=== PATIENT | female | born 1980 | race Caucasian/White ===

== ENCOUNTER → 2016-12-09 | Outpatient (CLI) | payer OTHER | END | disposition home or self-care (01) | LOC: C.LAB 11:39 | DX: Z02.83 Encounter for blood-alcohol and blood-drug test (principal) ==

== ENCOUNTER 2017-10-22 05:18 | Emergency (ER) | payer OTHER ==
[2017-10-22] MEDS ORDERED: LORAZEPAM 2 MG/ML 1 ML VIAL ONE (05:26)
[2017-10-22] MEDS ORDERED: HALOPERIDOL LACTATE 5 MG/ML 1 ML VIAL ONE (05:26)
--- NOTE | 2017-10-22 05:48 | EMERGENCY ROOM VISIT NOTE ---
History Report prepared by Karina: Zac Ruiz Under the Supervision of: Dr. Marva Johnson D.O. First contact with patient: 05:25 Chief Complaint: MENTAL HEALTH EVALUATION Stated Complaint: MENTAL HEALTH EVALUATION History of Present Illness The patient is a 37 year old female who presents to the Emergency Room with complaints of an episode of suicidal ideations occurring today. The patient's sister states that the patient lives with her. She notes that the patient was admitted last week after she had a seizure. She reports that the patient then had another seizure three days ago because she took three of her gabapentin. She states that the patient did not have a previous history of seizures before last week. She notes that the patient last slept three days ago. She reports that the patient started having odd and erratic behavior today. She states that the patient was naked and screaming this morning. She notes that the patient broke a mirror and then threatened to kill herself and then kill her sister. She reports that the patient has been arrested fourteen times and has been in and out of shelter. She states that the patient has a history of substance abuse and is possibly abusing substances at this time but she notes that she is not sure. She reports that the patient does not have a previous attempt of suicide and homicide. She states that she is not sure if the patient has been admitted for psychiatric reasons in the past. She notes that the patient does not drink alcohol. She reports that the patient has a mother with schizophrenia and manic depression and she states that the patient is showing similar symptoms as her mother. She notes that she would like to petition for involuntary admission. When being restrained by security and state police, the patient stated to security that she is "going to destroy your house." She also told security "don' t touch me or it will be your deathbed, I promise." Source of History: patient, family (sister) Onset: today Position: head Quality: other (suicidal ideations) Timing: other (an episode) Note: Per sister, the patient threatened to kill her. Review of Systems See HPI for pertinent positives & negatives. A total of 10 systems reviewed and were otherwise negative. Past Medical & Surgical Medical Problems: (1) Seizure (2) Substance abuse (3) Toxic encephalopathy Family History FH: manic depression FH: schizophrenia Social History Smoking Status: Unknown if Ever Smoked Alcohol Use: none Drug Use: cocaine, other Marital Status: single Housing Status: lives with friends Occupation Status: unemployed Current/Historical Medications Unable to Obtain Active Prescriptions or Reported Meds Allergies Coded Allergies: No Known Allergies (Unverified , 10/07/07) Physical Exam Vital Signs Date Time Temp Pulse Resp B/P (MAP) Pulse Ox O2 Delivery O2 Flow Rate FiO2 10/22/17 07:30 77 11 116/75 97 Room Air 10/22/17 07:00 83 12 112/75 96 Room Air 10/22/17 06:08 93 10/22/17 05:39 108 20 141/84 98 Room Air Physical Exam General: Restrained by two state troopers and two security guards, screaming expletives, threatening to kill providers. HEENT: Head - normocephalic and atraumatic Pupils are 4mm and reactive to light. Extraocular eye muscles are intact, and sclera are anicteric. Nose - moist nasal mucosa without discharge. Mouth - moist buccal mucosa. Oropharynx is nonerythematous and there is no tonsillar exudate or edema noted. Neck: Supple; no JVD, nuchal rigidity, cervical lymphadenopathy. Heart: Regular rhythm and tachycardic. There is a normal S1 and S2 with no murmurs, clicks, or gallops appreciated. Lungs: Clear to auscultation bilaterally with no wheezes, rales, or rhonchi. Abdomen: Soft, completely nontender, nondistended, with good bowel sounds. There are no palpable pulsatile masses or hepatosplenomegaly. There is no guarding, rigidity, or rebound noted. Extremities: No evidence of cyanosis, clubbing, or edema. There are easily palpable peripheral pulses. Multiple bruises at different stages of healing on legs. Superficial lacerations to the right wrist Skin: warm and dry with good turgor and no rashes. Medical Decision & Procedures Laboratory Results 10/22/17 05:57 Red Blood Count 3.87, Mean Corpuscular Volume 92.0, Mean Corpuscular Hemoglobin 30.2, Mean Corpuscular Hemoglobin Concent 32.9, Mean Platelet Volume , Neutrophils (%) (Auto) 67.2, Lymphocytes (%) (Auto) 21.0, Monocytes (%) (Auto) 8.6, Eosinophils (%) (Auto) 2.0, Basophils (%) (Auto) 0.4, Neutrophils # (Auto) 5.07, Lymphocytes # (Auto) 1.58, Monocytes # (Auto) 0.65, Eosinophils # (Auto) 0.15, Basophils # (Auto) 0.03 10/22/17 05:57 Test 10/22/17 05:46 10/22/17 05:57 White Blood Count 7.54 K/uL (4.8-10.8) Red Blood Count 3.87 M/uL (4.2-5.4) Hemoglobin 11.7 g/dL (12.0-16.0) Hematocrit 35.6 % (37-47) Mean Corpuscular Volume 92.0 fL (80-100) Mean Corpuscular Hemoglobin 30.2 pg (25-34) Mean Corpuscular Hemoglobin Concent 32.9 g/dl (32-36) Platelet Count K/uL (130-400) Mean Platelet Volume fL (7.4-10.4) Neutrophils (%) (Auto) 67.2 % Lymphocytes (%) (Auto) 21.0 % Monocytes (%) (Auto) 8.6 % Eosinophils (%) (Auto) 2.0 % Basophils (%) (Auto) 0.4 % Neutrophils # (Auto) 5.07 K/uL (1.4-6.5) Lymphocytes # (Auto) 1.58 K/uL (1.2-3.4) Monocytes # (Auto) 0.65 K/uL (0.11-0.59) Eosinophils # (Auto) 0.15 K/uL (0-0.5) Basophils # (Auto) 0.03 K/uL (0-0.2) RDW Standard Deviation 44.6 fL (36.4-46.3) RDW Coefficient of Variation 13.3 % (11.5-14.5) Immature Granulocyte % (Auto) 0.8 % Immature Granulocyte # (Auto) 0.06 K/uL (0.00-0.02) Anion Gap 8.0 mmol/L (3-11) Estimated GFR () 118.0 Estimated GFR (Non- 101.8 BUN/Creatinine Ratio 10.6 (10-20) Calcium Level 9.0 mg/dl (8.5-10.1) Total Bilirubin 0.2 mg/dl (0.2-1) Direct Bilirubin < 0.1 mg/dl (0-0.2) Aspartate Amino Transf (AST/SGOT) 27 U/L (15-37) Alanine Aminotransferase (ALT/SGPT) 20 U/L (12-78) Alkaline Phosphatase 64 U/L (45-117) Total Protein 7.3 gm/dl (6.4-8.2) Albumin 3.9 gm/dl (3.4-5.0) Thyroid Stimulating Hormone (TSH) 1.470 uIu/ml (0.300-4.500) Salicylates Level 2.1 mg/dl (2.8-20) Acetaminophen Level < 2 ug/ml (10-30) Ethyl Alcohol mg/dL < 3.0 mg/dl (0-3) Laboratory results per my review. Medications Administered Medications (Trade) Dose Ordered Sig/Aparna Route Start Time Stop Time Status Last Admin Dose Admin Lorazepam (Ativan Inj) 2 mg STK-MED ONCE .ROUTE 10/22/17 05:26 10/22/17 05:27 DC 10/22/17 05:30 2 MG Haloperidol Lactate (Haldol Inj) 5 mg STK-MED ONCE .ROUTE 10/22/17 05:26 10/22/17 05:27 DC 10/22/17 05:30 5 MG Procedure Haldol Inj 5mg IM, Ativan Inj 2mg IM ED Course 0529: Past medical records reviewed. The patient was evaluated in room A8. A complete history and physical exam was performed. The patient was threatening security, state police, and staff. 0525: The patient went into chemical and four point leather restraints. 0526: Haldol Inj 5mg IV, Ativan Inj 2mg IV. I had a lengthy conversation with the patient's sister as described above. 0558: I reevaluated the patient. She is sleeping. Staff from [facility] are currently talking to the patient's sister. 0647: I reviewed the petitioning statement that the patient's sister wrote. 0700: The patient was taken out of her leather restraints. She is still sleeping and remains hemodynamically stable. 0730: The patient was signed out to Dr. Bruce at the change of shift. Once the patient is awake, they will collect a urine. Medical Decision The patient is a 37 year old female who presents to the Emergency Room with complaints of an episode of suicidal ideations occurring today. Differential diagnoses include: substance abuse, acute psychosis, mood disorder, thought disorder, suicidal threats, and homicidal threats. Lab Results Show: Salicylates 2.1. Acetaminophen < 2. Normal TSH and LFTs. Glucose 100. Normal renal function. WBC normal. Hemoglobin 11.7. This is a 37-year-old female patient presents to the emergency department after making suicidal statements and cutting her wrist with a piece of broken mirror. The patient also threatened to kill her sister. She was brought to the emergency department by state police. She required physical restraint by police and security once here in the emergency department. She continued to scream expletives and threaten staff. She was sedated with Haldol and Ativan and placed in four-point leather restraints. The patient's sister petitioned a 302. According to the sister, the patient threatened to kill the sister and herself. She describes an extensive mental health history in their mother and is concerned for this patient. The patient remains asleep at this time. Once she is medically cleared, she will be evaluated by can help. Medication Reconcilliation Current Medication List: was personally reviewed by me Blood Pressure Screening Patient's blood pressure: Elevated blood pressure Blood pressure disposition: Elevated BP felt to be situational Impression Primary Impression: Suicidal ideation Additional Impression: Homicidal ideations Critical Care I have personally spent greater than 30 minutes of critical care time in the direct management of this patient. This includes bedside care, interpretation of diagnostic studies, and testing, discussion with consultants, patient, and family members, and other required patient management activities. This 30 minutes is in excess of all separately billable procedures. Scribe Attestation The scribe's documentation has been prepared under my direction and personally reviewed by me in its entirety. I confirm that the note above accurately reflects all work, treatment, procedures, and medical decision making performed by me. Departure Information Dispostion Still a Patient Prescriptions Unable to Obtain Active Prescriptions or Reported Meds Referrals No Doctor, Assigned (PCP) Patient Instructions My [facility] Problem Qualifiers
[2017-10-22 06:30] LABS: ALBUMIN 3.9 gm/dl (3.4-5.0); BLOOD UREA NITROGEN 8 mg/dl (7-18); CARBON DIOXIDE 26 mmol/L (21-32); CREATININE 0.75 mg/dl (0.60-1.20); GLUCOSE 100 mg/dl (70-99)
[2017-10-22 06:38] LABS: ALKALINE PHOSPHATASE 64 U/L (45-117); ALT/SGPT 20 U/L (12-78); AST/SGOT 27 U/L (15-37); POTASSIUM 4.2 mmol/L (3.5-5.1); SODIUM 142 mmol/L (136-145); TOTAL PROTEIN 7.3 gm/dl (6.4-8.2)
--- NOTE | 2017-10-22 06:46 | EMERGENCY ROOM VISIT NOTE ---
ED Visit Note First contact with patient: 06:46 I assumed care of the patient at change of shift from Dr. Johnson. Patient was very difficult to arouse during shift and was not able to be evaluated by the psych manager of case. I did review the blood work and there was no overt concerns at this time. Patient was pending a urinalysis. Patient was signed out to the afternoon physician Dr. Whalen.
[2017-10-22 07:07] LABS: HEMATOCRIT 35.6 % (37-47); HEMOGLOBIN 11.7 g/dL (12.0-16.0); MEAN CORPUSCULAR HEMOGLOBIN 30.2 pg (25-34); MEAN CORPUSCULAR HGB CONC 32.9 g/dl (32-36); RED CELL DISTRIBUTION WIDTH CV 13.3 % (11.5-14.5); RED CELL DISTRIBUTION WIDTH SD 44.6 fL (36.4-46.3); WHITE BLOOD COUNT 7.54 K/uL (4.8-10.8)
[2017-10-22 07:14] LABS: BASO % 0.4 %; BASO ABS # 0.03 K/uL (0-0.2); EOS ABS # 0.15 K/uL (0-0.5); IG# 0.06 K/uL (0.00-0.02); LYMPH ABS # 1.58 K/uL (1.2-3.4); MONO % 8.6 %; MONO ABS # 0.65 K/uL (0.11-0.59); NEUT % 67.2 %; NEUT ABS # 5.07 K/uL (1.4-6.5)
--- NOTE | 2017-10-22 15:40 | EMERGENCY ROOM VISIT NOTE ---
ED Visit Note First contact with patient: 15:[address] drew flynn of schizophrenia, awaiting ua and psych eval
[2017-10-22] MEDS ORDERED: NICOTINE 14 MG/24 HR TDSY TD ONE (17:45)
[2017-10-22] MEDS ORDERED: NURSING VERBAL MED ORDER ONE (17:45)
[2017-10-23 01:36] VITALS: BP 136/83
--- NOTE | 2017-10-23 04:54 | EMERGENCY ROOM VISIT NOTE ---
ED Visit Note First contact with patient: 05:25 This case was signed out to me at change of shift awaiting bed placement. The 302 had been signed. The patient has been accepted at the [facility] near [place]. She will be transferred there by ashu at 5:30 this morning.
[2017-10-23 06:07] VITALS: PULSE 68; O2SAT 97
== END 2017-10-23 06:08 ==
LOC: C.EDB 05:19 → C.EDA 10-23 06:08
DX: R45.851 Suicidal ideations (principal); R45.850 Homicidal ideations; S61.511A Laceration without foreign body of right wrist, initial encounter; X78.0XXA Intentional self-harm by sharp glass, initial encounter; R03.0 Elevated blood-pressure reading, without diagnosis of hypertension; Z81.8 Family history of other mental and behavioral disorders

== ENCOUNTER 2020-01-03 06:31 | Inpatient (IN) ==
--- NOTE | 2020-01-03 07:32 | Emergency Department Note ---
Impression & Plan Heroin overdose, Hypercarbia, Polysubstance abuse ED Provider Note NAME: MARK GAO AGE: 39 SEX: F ARRIVES VIA: Ambulance INFORMANT: Patient, ED PROVIDER(S): Ba Granados MD CHIEF COMPLAINT: Heroine overdose. PLAN: Disposition: Home MEDICAL DECISION MAKING: The patient is a 39-year-old woman with a past medical history of polysubstance abuse who presents emergency department via EMS after receiving Narcan after they were called to the scene for friends concerned that the patient had stopped breathing and gave CPR though upon EMS arrival the patient was breathing and did have a pulse and was given Narcan with improvement in her mental status. The patient reports taking his using a sprinkle of heroin but had 5 empty bags on her person. She reports it is possible that her heroin was laced with other substances but does not know for sure. She denies knowingly using any other substances such as methadone or benzodiazepines. On arrival the patient is drowsy appearing but no acute distress, afebrile with stable vital signs with normal respiratory effort and rate and oxygenation. She does have pinpoint pupils. Reflexes within normal limits. There is no clonus. She does have scattered excoriations and contusions of her skin with no overt abscess identified. There is no chest wall tenderness or skin changes to suggest any true/effective CPR effort prior to EMS arrival. Given the patient had unremarkable vital signs she was initially observed with minimal additional testing however over the course of her observation it was noted that she remained drowsy and as she would fall asleep she would become bradypneic with respiratory rate 6-8 and would become hypoxic to the upper 80s. She was placed on nasal cannula and given 0.4 mg of Narcan which did briefly improve her respiratory rate but then would again become bradypneic when falling asleep. Of note during her observation she always would easily awaken to voice however her respiratory rate was of concern. She was given 2 mg of IV Narcan with improvement in her respiratory rate even when sleeping however given her persistent drowsiness with continued pinpoint pupils unclear of whether there was an alteration in the patient's heroin or there is additional substance contributing to patient's symptoms that she has not disclosed. For, reasonable to meet the patient for further management. I did review the case with the [facility]. They agree with plan thus far however given the possibility of the patient is a chronic heroin user caution was given for starting Narcan drip for risk of severe withdrawal and so it was explained that some deputy administrator will recommend prophylactic intubation if Narcan drip is started. Given she is easily arousable to voice and is protecting her airway otherwise will defer Narcan drip at this time but monitor closely with capnography. Otherwise, the patient's EKG was unremarkable without acute ischemia and normal intervals. WBC, H/H and platelets within normal limits. Chemistry without metabolic acidosis. AST marginally elevated at 79, nonspecific. Otherwise electrolytes and LFTs unremarkable. Urine analysis and urine drug screen ordered and pending. Patient's VBG did demonstrate a degree of hypercapnia with PCO2 of 61 and pH of 7.29 is consistent with the patient's bradypneic episodes. CT head negative for acute process. Dysconjugate gaze of unclear significance at this time. Suspect related to polysubstance ovderdose. Case was [facility] who will evaluate the patient for admission. Triage Nursing notes reviewed and agree them. Additional history obtained from EMS Prior medical records reviewed Vital Signs: reviewed and remarkable for no significant abnormalities Differential diagnosis: Overdose, toxicologic, infection, hypoglycemia, electrolyte abnormalities, cardiac sources, intracerebral event, neurologic, trauma, as well as other pathologies. ER treatment provided: See below. Diagnostics interpreted by me: ECG: Normal sinus rhythm, 60 bpm, no ectopy, normal axis, no overt ST elevation or depression, QTC 428, QRS 82. Cardiac Monitoring: An order for continuous cardiac monitoring was placed and demonstrated normal sinus rhythm, 60 bpm, no ectopy. Laboratory studies: See below Imaging studies: CT head/brain wo con CLINICAL HISTORY: Acute change in mental status COMPARISON STUDY: 10/14/2017 TECHNIQUE: Axial CT of the brain is performed from the vertex to the skull base. IV contrast was not administered for this examination. A dose lowering t echnique was utilized adhering to the principles of ALARA. CT DOSE: 537.48 mGy.cm FINDINGS: No intra or extra-axial mass lesions are visualized. There is no CT evidence of acute cortical infarction. There is no evidence of midline shift. There is no acute hemorrhage. No calvarial fractures are visualized. There is disconjugate ocular gaze There is no evidence of pathologic ventricular dilatation. There is no evidence of acute sinusitis IMPRESSION: 1. Disconjugate ocular gaze. Otherwise unremarkable noncontrast head CT. Consultation(s): [facility] Suzette Boyce with [facility] hospitalist who will evaluate the patient for admission. HPI: The patient is a 39-year-old woman with a past medical history of polysubstance abuse who presents emergency department via EMS after receiving Narcan after they were called to the scene for friends concerned that the patient had stopped breathing and gave CPR though upon EMS arrival the patient was breathing and did have a pulse and was given Narcan with improvement in her mental status. The patient reports taking his using a sprinkle of heroin but had 5 empty bags on her person. On arrival the patient is drowsy appearing but no acute distress, afebrile with stable vital signs with normal respiratory effort and rate and oxygenation. She does have scattered excoriations and contusions of her skin with no overt abscess identified. There is no chest wall tenderness or skin changes to suggest any true/effective CPR effort prior to EMS arrival. ROS: See above HPI for pertinent positives & negatives. A total of 10 systems reviewed and were otherwise negative. PAST MEDICAL HISTORY:See Below PAST SURGICAL HISTORY:See Below FAMILY HISTORY:See Below SOCIAL HISTORY:See Below HOME MEDICATIONS:See Below ALLERGIES:See Below VITALS:See Below PHYSICAL EXAMINATION: GENERAL: Awake, alert, fatigue-appearing, in no distress HENT: Normocephalic, atraumatic. Oropharynx with dry mucous membranes and otherwise unremarkable. EYES: Normal conjunctiva. Sclera non-icteric. Pinpoint pupils. No nystagmus or dysconjugate gaze. NECK: Supple. No nuchal rigidity. FROM. No JVD. RESPIRATORY: Clear to auscultation. CARDIAC: Regular rate, normal rhythm. Extremities warm and well perfused. Pulses equal. ABDOMEN: Soft, non-distended. No tenderness to palpation. No rebound or guarding. No masses. RECTAL: Deferred. MUSCULOSKELETAL: Chest examination reveals no tenderness. The back is symmetrical on inspection without obvious abnormality. There is no CVA tenderness to palpation. No joint edema. LOWER EXTREMITIES: Calves are equal size bilaterally and non-tender. No edema. No discoloration. NEURO: Normal sensorium. No sensory or motor deficits noted. 5/5 strength and SILT x 4 extremities. Intact finger to nose. DTRs wnl. No clonus. SKIN: Warm and dry. No jaundice noted. Scattered superficial excoriations and contusions throughout extremities face, chest and abdomen without areas of induration or fluctuance. ED COURSE: Critical Care: I have personally spent greater than 125 minutes of critical care time in the direct management of this patient. This includes bedside care, interpretation of diagnostic studies, and testing, discussion with consultants, patient, and family members, and other required patient management activities. This 125 minutes is in excess of all separately billable procedures. Ba Granados MD Past Med/Surg History Medical History Anxiety Genital warts Polysubstance abuse Suicidal ideation Family History Mother Kidney disease Social History Smoking Status: Current every day smoker Cigarettes Per Day: 20; Tobacco Cessation Education Requested by Patient: No Hx Alcohol Use: No Hx Substance Use: Yes Last Used Substance: Hours (ago) Substance Use Type Other:: Here with heroin/meth overdose Preferred Language: [place] Communication Ability: Effective [employer] Professional Required: No Beliefs That Will Affect Care: None Current Living Situation: Other Current Living Situation Comment: Living with friends Other Information That Helps Us Care for You: No Feels Safe at Home: Yes Safety Concerns: Feels Safe At This Time Assistive Devices: None Allergies Allergies Allergy/AdvReac Type Severity Reaction Status Date / Time No Known Allergies Allergy Mild Unverified 01/03/20 16:16 Home Meds Home Medications Medication Instructions Recorded Confirmed gabapentin 800 mg PO TID 01/03/20 01/03/20 Results & Data (ED) Vital Signs Vital Signs - 24 hr 01/03/20 06:40 01/03/20 06:42 01/03/20 07:00 Temperature 36.4 C L Temperature Source Oral Pulse Rate 61 60 72 Pulse Rate from SpO2 Sensor 60 78 Respiratory Rate 18 20 19 Respiratory Effort / Characteristics Non-Labored Spontaneous Respiratory Depth Normal Respiratory Pattern Regular Blood Pressure 128/79 128/79 87/54 L Blood Pressure Mean 85 95 59 Blood Pressure Position Lying Pulse Oximetry 100 100 96 Oxygen Delivery Method Room Air Oxygen Flow Rate Sepsis Recent Fever Within 48 Hours No Sepsis New/Unexplained Change in Mental Status No Sepsis Action Taken by Nursing No Action Required End-Tidal CO2 01/03/20 07:04 01/03/20 07:30 01/03/20 08:00 Temperature Temperature Source Pulse Rate 69 72 Pulse Rate from SpO2 Sensor 70 75 Respiratory Rate Respiratory Effort / Characteristics Respiratory Depth Respiratory Pattern Blood Pressure 113/67 Blood Pressure Mean 80 Blood Pressure Position Pulse Oximetry 100 90 Oxygen Delivery Method Room Air Oxygen Flow Rate Sepsis Recent Fever Within 48 Hours Sepsis New/Unexplained Change in Mental Status Sepsis Action Taken by Nursing End-Tidal CO2 01/03/20 08:30 01/03/20 09:00 01/03/20 09:30 Temperature Temperature Source Pulse Rate 78 78 81 Pulse Rate from SpO2 Sensor 79 82 78 Respiratory Rate 10 L 11 L Respiratory Effort / Characteristics Respiratory Depth Respiratory Pattern Blood Pressure 111/66 Blood Pressure Mean 89 Blood Pressure Position Pulse Oximetry 90 92 Oxygen Delivery Method Oxygen Flow Rate Sepsis Recent Fever Within 48 Hours Sepsis New/Unexplained Change in Mental Status Sepsis Action Taken by Nursing End-Tidal CO2 01/03/20 11:00 01/03/20 12:01 01/03/20 13:01 Temperature Temperature Source Pulse Rate 66 79 72 Pulse Rate from SpO2 Sensor 71 66 Respiratory Rate 12 12 11 L Respiratory Effort / Characteristics Respiratory Depth Respiratory Pattern Blood Pressure 113/75 122/82 137/71 Blood Pressure Mean 81 98 85 Blood Pressure Position Pulse Oximetry 97 99 98 Oxygen Delivery Method Oxygen Flow Rate 2 2 2 Sepsis Recent Fever Within 48 Hours Sepsis New/Unexplained Change in Mental Status Sepsis Action Taken by Nursing End-Tidal CO2 01/03/20 14:04 01/03/20 14:08 01/03/20 14:30 Temperature Temperature Source Pulse Rate 63 55 L 60 Pulse Rate from SpO2 Sensor 62 55 L 63 Respiratory Rate Respiratory Effort / Characteristics Respiratory Depth Respiratory Pattern Blood Pressure 121/87 122/85 Blood Pressure Mean 112 97 92 Blood Pressure Position Pulse Oximetry 100 100 100 Oxygen Delivery Method Oxygen Flow Rate Sepsis Recent Fever Within 48 Hours Sepsis New/Unexplained Change in Mental Status Sepsis Action Taken by Nursing End-Tidal CO2 40 39 42 01/03/20 15:00 01/03/20 15:30 Temperature Temperature Source Pulse Rate 58 L 48 L Pulse Rate from SpO2 Sensor 60 57 L Respiratory Rate Respiratory Effort / Characteristics Respiratory Depth Respiratory Pattern Blood Pressure 118/79 114/73 Blood Pressure Mean 84 84 Blood Pressure Position Pulse Oximetry 100 100 Oxygen Delivery Method Oxygen Flow Rate Sepsis Recent Fever Within 48 Hours Sepsis New/Unexplained Change in Mental Status Sepsis Action Taken by Nursing End-Tidal CO2 Laboratory Data Attestation: I reviewed the patient's lab results. Result diagrams: 01/03/20 11:49 01/03/20 11:49 Lab Results 01/03/20 01/03/20 01/03/20 Range/Units 07:07 11:49 11:49 WBC (4.8-10.8) K/uL RBC (4.2-5.4) M/uL Hgb (12.0-16.0) g/dL Hct (37-47) % MCV (80-100) fL MCH (25-34) pg MCHC (32-36) g/dL RDW Std Deviation (36.4-46.3) fL RDW Coeff of Yinka (11.5-14.5) % Plt Count (130-400) K/uL MPV (7.4-10.4) fL Immature Gran % (Auto) % Neut % (Auto) % Lymph % (Auto) % [place] % (Auto) % Eos % (Auto) % Baso % (Auto) % Neut # (Auto) (1.4-6.5) K/uL Lymph # (Auto) (1.2-3.4) K/uL [place] # (Auto) (0.11-0.59) K/uL Eos # (Auto) (0-0.5) K/uL Baso # (Auto) (0-0.2) K/uL Immature Gran # (Auto) (0.00-0.02) K/uL PT (9.0-12.0) Seconds INR (0.9-1.1) ABG pH (7.35-7.45) ABG pCO2 (35-46) mmHg ABG pO2 (80-95) mmHg ABG HCO3 (19-24) mmol/L ABG O2 Saturation (90-95) % ABG Base Excess (-9-1.8) mEq/L Mina Test (Pos) VBG pH (7.36-7.41) VBG pCO2 (38-50) mmHg VBG pO2 mmHg VBG HCO3 mmol/L VBG O2 Saturation % VBG Base Excess mEq/L Barometric Pressure mm/Hg Oxygen Given Sodium 141 (136-145) mmol/L Potassium 3.8 (3.5-5.1) mmol/L Chloride 110 H (98-107) mmol/L Carbon Dioxide 28 (21-32) mmol/L Anion Gap 3.0 (3-11) BUN 16 (7-18) mg/dl Creatinine 0.79 (0.6-1.2) mg/dl Est Cr Clr Drug Dosing Not Reportable Est GFR ( Amer) 109.3 Est GFR (Non-Af Amer) 94.3 BUN/Creatinine Ratio 20.5 H (10-20) Glucose 77 (70-99) mg/dl POC Glucose 117 H (70-99) mg/dl Calcium 9.0 (8.5-10.1) mg/dl Phosphorus 3.8 (2.5-4.9) mg/dl Magnesium 2.3 (1.8-2.4) mg/dl Total Bilirubin 0.3 (0.2-1) mg/dl AST 79 H (15-37) U/L ALT 72 (12-78) U/L Alkaline Phosphatase 99 (45-117) U/L Total Protein 7.4 (6.4-8.2) gm/dl Albumin 3.7 (3.4-5.0) gm/dl Globulin 3.7 (2.5-4.0) gm/dl Albumin/Globulin Ratio 1.0 (0.9-2) HCG, Qual Negative (Negative) Salicylates (2.8-20) mg/dl Acetaminophen (10-30) ug/ml 01/03/20 01/03/20 01/03/20 Range/Units 11:49 11:49 15:03 WBC 9.76 (4.8-10.8) K/uL RBC 4.14 L (4.2-5.4) M/uL Hgb 12.8 (12.0-16.0) g/dL Hct 39.4 (37-47) % MCV 95.2 (80-100) fL MCH 30.9 (25-34) pg MCHC 32.5 (32-36) g/dL RDW Std Deviation 45.2 (36.4-46.3) fL RDW Coeff of Yinka 13.0 (11.5-14.5) % Plt Count 350 (130-400) K/uL MPV 9.0 (7.4-10.4) fL Immature Gran % (Auto) 0.1 % Neut % (Auto) 78.1 % Lymph % (Auto) 13.1 % [place] % (Auto) 8.1 % Eos % (Auto) 0.4 % Baso % (Auto) 0.2 % Neut # (Auto) 7.62 H (1.4-6.5) K/uL Lymph # (Auto) 1.28 (1.2-3.4) K/uL [place] # (Auto) 0.79 H (0.11-0.59) K/uL Eos # (Auto) 0.04 (0-0.5) K/uL Baso # (Auto) 0.02 (0-0.2) K/uL Immature Gran # (Auto) 0.01 (0.00-0.02) K/uL PT 11.8 (9.0-12.0) Seconds INR 1.1 (0.9-1.1) ABG pH (7.35-7.45) ABG pCO2 (35-46) mmHg ABG pO2 (80-95) mmHg ABG HCO3 (19-24) mmol/L ABG O2 Saturation (90-95) % ABG Base Excess (-9-1.8) mEq/L Mina Test (Pos) VBG pH 7.29 L (7.36-7.41) VBG pCO2 61 H (38-50) mmHg VBG pO2 43 mmHg VBG HCO3 29 mmol/L VBG O2 Saturation 69.8 % VBG Base Excess 0.6 mEq/L Barometric Pressure 725.1 mm/Hg Oxygen Given Sodium (136-145) mmol/L Potassium (3.5-5.1) mmol/L Chloride (98-107) mmol/L Carbon Dioxide (21-32) mmol/L Anion Gap (3-11) BUN (7-18) mg/dl Creatinine (0.6-1.2) mg/dl Est Cr Clr Drug Dosing Est GFR ( Amer) Est GFR (Non-Af Amer) BUN/Creatinine Ratio (10-20) Glucose (70-99) mg/dl POC Glucose (70-99) mg/dl Calcium (8.5-10.1) mg/dl Phosphorus (2.5-4.9) mg/dl Magnesium (1.8-2.4) mg/dl Total Bilirubin (0.2-1) mg/dl AST (15-37) U/L ALT (12-78) U/L Alkaline Phosphatase (45-117) U/L Total Protein (6.4-8.2) gm/dl Albumin (3.4-5.0) gm/dl Globulin (2.5-4.0) gm/dl Albumin/Globulin Ratio (0.9-2) HCG, Qual (Negative) Salicylates (2.8-20) mg/dl Acetaminophen (10-30) ug/ml 01/03/20 01/03/20 Range/Units 15:03 15:03 WBC (4.8-10.8) K/uL RBC (4.2-5.4) M/uL Hgb (12.0-16.0) g/dL Hct (37-47) % MCV (80-100) fL MCH (25-34) pg MCHC (32-36) g/dL RDW Std Deviation (36.4-46.3) fL RDW Coeff of Yinka (11.5-14.5) % Plt Count (130-400) K/uL MPV (7.4-10.4) fL Immature Gran % (Auto) % Neut % (Auto) % Lymph % (Auto) % [place] % (Auto) % Eos % (Auto) % Baso % (Auto) % Neut # (Auto) (1.4-6.5) K/uL Lymph # (Auto) (1.2-3.4) K/uL [place] # (Auto) (0.11-0.59) K/uL Eos # (Auto) (0-0.5) K/uL Baso # (Auto) (0-0.2) K/uL Immature Gran # (Auto) (0.00-0.02) K/uL PT (9.0-12.0) Seconds INR (0.9-1.1) ABG pH 7.34 L (7.35-7.45) ABG pCO2 50 H (35-46) mmHg ABG pO2 122 H (80-95) mmHg ABG HCO3 26 H (19-24) mmol/L ABG O2 Saturation 98.4 H (90-95) % ABG Base Excess 0.0 (-9-1.8) mEq/L Mina Test POS (Pos) VBG pH (7.36-7.41) VBG pCO2 (38-50) mmHg VBG pO2 mmHg VBG HCO3 mmol/L VBG O2 Saturation % VBG Base Excess mEq/L Barometric Pressure 724.2 mm/Hg Oxygen Given Oxygen Flow Rate 2 Sodium (136-145) mmol/L Potassium (3.5-5.1) mmol/L Chloride (98-107) mmol/L Carbon Dioxide (21-32) mmol/L Anion Gap (3-11) BUN (7-18) mg/dl Creatinine (0.6-1.2) mg/dl Est Cr Clr Drug Dosing Est GFR ( Amer) Est GFR (Non-Af Amer) BUN/Creatinine Ratio (10-20) Glucose (70-99) mg/dl POC Glucose (70-99) mg/dl Calcium (8.5-10.1) mg/dl Phosphorus (2.5-4.9) mg/dl Magnesium (1.8-2.4) mg/dl Total Bilirubin (0.2-1) mg/dl AST (15-37) U/L ALT (12-78) U/L Alkaline Phosphatase (45-117) U/L Total Protein (6.4-8.2) gm/dl Albumin (3.4-5.0) gm/dl Globulin (2.5-4.0) gm/dl Albumin/Globulin Ratio (0.9-2) HCG, Qual (Negative) Salicylates 2.6 L (2.8-20) mg/dl Acetaminophen 2 L (10-30) ug/ml Administered Medications Sodium Chloride (Nss 1000ml) 1,000 mls @ 100 mls/hr IV .Q10H ISHAN Stop: 02/02/20 17:04 Last Admin: 01/03/20 17:20 Dose: 100 mls/hr Documented by: [id number] Discontinued Medications Sodium Chloride (Nss 1000ml) 1,000 mls @ 999 mls/hr IV .Q1H1M ONE Stop: 01/03/20 12:27 Last Infusion: 01/03/20 12:58 Dose: 0 mls/hr Documented by: [id number] Admin: 01/03/20 11:55 Dose: 999 mls/hr Documented by: [id number] Prochlorperazine (Compazine) 1 mls @ 1 mls/min IV ONE ONE Stop: 01/03/20 13:51 Last Admin: 01/03/20 13:59 Dose: 1 mls/min Documented by: [id number] Naloxone HCl (Naloxone Hcl 0.4 Mg/1 Ml Vial/Carp) 0.4 mg IV NOW STA Stop: 01/03/20 11:25 Last Admin: 01/03/20 11:55 Dose: 0.4 mg Documented by: [id number] Naloxone HCl (Naloxone Hcl 0.4 Mg/1 Ml Vial/Carp) 2 mg IV NOW STA Stop: 01/03/20 12:30 Last Admin: 01/03/20 12:44 Dose: 2 mg Documented by: [id number] Discharge Plan Visit Data Chief Complaint: Overdose (Intentional) Stated Complaint: OVERDOSE ED Provider: aB Granados Discharge Problem: Heroin overdose, Hypercarbia, Polysubstance abuse Patient Disposition: Admitted As Inpatient Discharge Instructions Interventions: ED Discharge Assessment Last Done: 01/03/20 15:58 Discharge Problem: Heroin overdose Qualifiers: Encounter type: initial encounter Injury intent: accidental or unintentional Qualified Code(s): T40.1X1A - Poisoning by heroin, accidental (unintentional), initial encounter
[2020-01-03] MEDS ORDERED: NALOXONE HCL 0.4 MG/1 ML VIAL/CARP IV STA ×2 (11:24→12:29)
[2020-01-03] MEDS ORDERED: SODIUM CHLORIDE 0.9% 1000ML 1,000 ML IV ONE (11:27)
[2020-01-03 11:57] LABS: Basophils # (auto) 0.02 K/uL (0-0.2); Basophils % (auto) 0.2 %; Eosinophils # (auto) 0.04 K/uL (0-0.5); Eosinophils % (auto) 0.4 %; Hematocrit (blood only) 39.4 % (37-47); Hemoglobin 12.8 g/dL (12.0-16.0); Immature Granulocytes # (auto) 0.01 K/uL (0.00-0.02); Immature Granulocytes % (auto) 0.1 %; Lymphocytes # (auto) 1.28 K/uL (1.2-3.4); Lymphocytes % (auto) 13.1 %; Mean Corpuscular Hemoglobin 30.9 pg (25-34); Mean Corpuscular Hgb Conc 32.5 g/dL (32-36); Mean Corpuscular Volume 95.2 fL (80-100); Monocytes # (auto) 0.79 K/uL (0.11-0.59); Monocytes % (auto) 8.1 %; Neutrophils # (auto) 7.62 K/uL (1.4-6.5); Neutrophils % (auto) 78.1 %; Platelet Count 350 K/uL (130-400); RDW Standard Deviation 45.2 fL (36.4-46.3); Red Blood Count 4.14 M/uL (4.2-5.4); White Blood Count 9.76 K/uL (4.8-10.8)
--- NOTE | 2020-01-03 11:57 | Electrocardiogram Report ---
Test Reason : Blood Pressure : / mmHG Vent. Rate : 060 BPM Atrial Rate : 060 BPM P-R Int : 150 ms QRS Dur : 082 ms QT Int : 428 ms P-R-T Axes : 070 073 069 degrees QTc Int : 428 ms Normal sinus rhythm Normal ECG When compared with ECG of 16-OCT-2017 08:17, No significant change was found Confirmed by Rocky Liriano ([id number]) on 01/03/2020 11:57:13 AM Referred By: REFERRED SELF Confirmed By:Odin Liriano
[2020-01-03 12:00] LABS: Base Excess VBG 0.6 mEq/L; Oxygen Saturation VBG 69.8 %; pH VBG 7.29 (7.36-7.41)
[2020-01-03 12:15] LABS: Alanine Aminotransferase 72 U/L (12-78); Albumin Level 3.7 gm/dl (3.4-5.0); Aspartate Aminotransferase 79 U/L (15-37); BUN Creatinine Ratio 20.5 (10-20); Blood Urea Nitrogen 16 mg/dl (7-18); Carbon Dioxide 28 mmol/L (21-32); Chloride 110 mmol/L (98-107); Est GFR (African American) 109.3; Est GFR (Non-African American) 94.3; Glucose 77 mg/dl (70-99); Magnesium 2.3 mg/dl (1.8-2.4); Potassium 3.8 mmol/L (3.5-5.1); Sodium 141 mmol/L (136-145)
[2020-01-03 12:18] LABS: Alkaline Phosphatase 99 U/L (45-117); Bilirubin,Total 0.3 mg/dl (0.2-1); Globulin 3.7 gm/dl (2.5-4.0); Phosphorus 3.8 mg/dl (2.5-4.9); Total Protein 7.4 gm/dl (6.4-8.2)
[2020-01-03 12:32] LABS: Pregnancy Test, Serum Negative (Negative)
--- NOTE | 2020-01-03 13:28 | CT Scan Report ---
CT head/brain wo con CLINICAL HISTORY: Acute change in mental status COMPARISON STUDY: 10/14/2017 TECHNIQUE: Axial CT of the brain is performed from the vertex to the skull base. IV contrast was not administered for this examination. A dose lowering technique was utilized adhering to the principles of ALARA. CT DOSE: 537.48 mGy.cm FINDINGS: No intra or extra-axial mass lesions are visualized. There is no CT evidence of acute cortical infarc tion. There is no evidence of midline shift. There is no acute hemorrhage. No calvarial fractures ar e visualized. There is disconjugate ocular gaze There is no evidence of pathologic ventricular dilatation. There is no evidence of acute sinusitis IMPRESSION: 1. Disconjugate ocular gaze. Otherwise unremarkable noncontrast head CT. ACT 112: Negative or not required by law. Electronically signed by: Toby Tejada M.D. 01/03/2020 1:26 PM
[2020-01-03] MEDS ORDERED: PROCHLORPERAZINE 1 ML IV ONE (13:50)
[2020-01-03 15:14] LABS: HCO3 ABG 26 mmol/L (19-24); Oxygen Saturation ABG 98.4 % (90-95); PCO2 ABG 50 mmHg (35-46); PO2 ABG 122 mmHg (80-95); pH ABG 7.34 (7.35-7.45)
[2020-01-03 15:20] LABS: INR 1.1 (0.9-1.1); Prothrombin Time 11.8 Seconds (9.0-12.0)
[2020-01-03 15:21] LABS: Allen Test POS (Pos)
[2020-01-03 15:46] LABS: Salicylate 2.6 mg/dl (2.8-20)
[2020-01-03] MEDS ORDERED: NALOXONE HCL 0.4 MG/1 ML VIAL/CARP IV PRN (17:05)
[2020-01-03] MEDS ORDERED: ACETAMINOPHEN 325 MG TAB PO PRN (17:05)
[2020-01-03] MEDS: SODIUM CHLORIDE 0.9% 1000ML 1,000 ML IV SCH (17:20)
--- NOTE | 2020-01-03 18:22 | Communication Note ---
Date of Service: January 03, 2020 She is a 39-year-old female with history of drug abuse was brought into emergency room with heroin overdose She admitted to use a sprinkle of heroin but had 5 empty bags He stopped breathing and received CPR by her friends and EMS found her to be breathing and had a pulse Received Narcan on the way to the hospital and received Narcan in the ER as well During the examination in the emergency room she was talking normally and denies any significant symptoms except weakness On examination No apparent distress at rest Has multiple skin lesions in the form of scratch cerna and boils Hemodynamically stable Chest-clear Heart S1-S2 regular- Abdomen-benign Extremities-no edema Admission labs, imaging studies and EKG reviewed Noted to be acidotic with high CO2 count initially secondary to decreased breathing from heroin overdose and back condition improved Will be admitted to PCU with heroin overdose Poison center consulted Reviewed and agree with assessment and plan as outlined above by Page Pastor
--- NOTE | 2020-01-03 18:57 | History & Physical Report ---
Date of Service January 03, 2020 Assessment & Plan (1) Heroin overdose: -Admit to telemetry -Patient presenting to ED after witnessed heroin overdose. Reportedly received CPR by her friends however when EMS arrived, patient did have a pulse with shallow respirations. Received nasal Narcan and began to arouse. -Required 2 additional doses of Narcan in the ED, 0.4 mg and 2 mg -Currently sleeping however easily arousable to verbal stimuli -Monitor closely on the telemetry unit with end-tidal CO2 monitoring -PRN Narcan -Mental health consult (2) Hypercarbia: -Initial VBG showed pH 7.29, PCO2 61, repeat ABG showed pH 7.34, PCO2 50 -Likely has some chronic CO2 retention from chronic tobacco abuse -Saturating well on 2 L of O2, respiratory status appears stable (3) DVT prophylaxis: -SCDs Admission and Anticipated Discharge Date Admission Date: January 03, 2020 History of Present Illness Chief Complaint: Overdose Primary Care Provider: Chayito Alejandro, 39 year old female with PMH polysubstance abuse and other problems listed below who presents to the ED for evaluation of heroin overdose. Patient has a longstanding history of polysubstance abuse. Patient reports she has history of using methamphetamine and heroin in the past. Reports that she typically smokes methamphetamines however had been clean for the past few months. Reports her sister recently and she was upset and decided to use heroin yesterday. Reports she has not used heroin in several years. After using heroin yesterday, patient's friends were concerned that she was unresponsive and not breathing. Reportedly, CPR was performed. When EMS arrived, patient was found to have a pulse and shallow respirations. She received nasal Narcan and began to arouse. In the ED, patient received 2 doses of Narcan, 0.4 mg and 2 mg. She currently is sleeping however is easily arousable. Vitals are stable. Patient reports she otherwise has been feeling well recently. No other recent illnesses, fevers, chills. Denies chest pain, shortness of breath, cough. No abdominal pain, nausea, or vomiting. Labs were remarkable for initial VBG showing pH 7.29, PCO2 61. Repeat ABG showed pH 7.34, PCO2 50. In addition to the Narcan, patient also received IVF and prochlorperazine in the ED. Allergies Allergy/AdvReac Type Severity Reaction Status Date / Time No Known Allergies Allergy Mild Unverified 01/03/20 16:16 Home Medications Home Medications Medication Instructions Recorded Confirmed Type gabapentin 800 mg PO TID 01/03/20 01/03/20 History Past Med/Surg History Medical History Anxiety Genital warts Polysubstance abuse Suicidal ideation Family History Mother Kidney disease Social History Smoking Status: Current every day smoker Cigarettes Per Day: 20; Tobacco Cessation Education Requested by Patient: No Hx Alcohol Use: No Hx Substance Use: Yes Last Used Substance: Hours (ago) Substance Use Type Other:: Here with heroin/meth overdose Preferred Language: Puerto Rican Communication Ability: Effective Precision Structural Metal Fitter Required: No Beliefs That Will Affect Care: None Current Living Situation: Other Current Living Situation Comment: Living with friends Other Information That Helps Us Care for You: No Feels Safe at Home: Yes Safety Concerns: Feels Safe At This Time Assistive Devices: None Review of Systems Review of Systems: ROS per HPI, all other systems reviewed and negative Physical Exam Constitutional: + thin Chronically ill-appearing consistent with chronic drug abuse Eyes: + pinpoint pupils; no conjunctival abnormality and no scleral abnormality ENMT: Ears: no external ear abnormality Nose: no external nose abnormality Mouth: + poor dentition Respiratory: normal respiratory effort, lungs clear to auscultation Cardiovascular: Rate/Rhythm: regular rate and regular rhythm Vessels: normal peripheral pulses Extremities: no edema Gastrointestinal (Abdomen): normal bowel sounds, soft, nontender, no hepatosplenomegaly Musculoskeletal: no cyanosis or clubbing, extremities motor strength 5/5 Skin: no rashes, warm and dry Numerous scattered abrasions/scabs over the face, track cerna noted over bilateral arms and legs Neurologic: Speech / Cognition: normal speech Cranial Nerves: normal accommodation, EOM intact bilaterally and normal facial strength; + no PERRL (Pinpoint pupils) Psychiatric: A+Ox3, euthymic affect Results & Data Results & Data ([facility]) Vital Signs (Past 12 Hours) Vital Signs Temp Pulse Pulse Resp BP BP Pulse Ox 01/03/20 17:55 66 113/75 100 01/03/20 17:30 55 L 99 10/07/20 17:13 36.4 C L 81 14 126/67 97 01/03/20 16:56 60 126/67 97 01/03/20 16:55 74 01/03/20 15:30 48 L 114/73 100 01/03/20 15:00 58 L 118/79 100 01/03/20 14:30 60 122/85 100 01/03/20 14:08 55 L 121/87 100 01/03/20 14:04 63 100 01/03/20 13:01 72 11 L 137/71 98 01/03/20 12:01 79 12 122/82 99 01/03/20 11:00 66 12 113/75 97 01/03/20 09:30 81 11 L 92 01/03/20 09:00 78 111/66 01/03/20 08:30 78 10 L 90 01/03/20 08:00 72 113/67 01/03/20 07:30 69 90 01/03/20 07:04 100 01/03/20 07:00 72 19 87/54 L 96 01/03/20 06:42 36.4 C L 60 20 128/79 100 01/03/20 06:40 61 18 128/79 100 Laboratory Results Short CBC 01/03/20 Range/Units 11:49 WBC 9.76 (4.8-10.8) K/uL Hgb 12.8 (12.0-16.0) g/dL Hct 39.4 (37-47) % Plt Count 350 (130-400) K/uL BMP 01/03/20 11:49 Sodium 141 Potassium 3.8 Chloride 110 H Carbon Dioxide 28 BUN 16 Creatinine 0.79 Glucose 77 Calcium 9.0 Liver Function 01/03/20 Range/Units 11:49 Total Bilirubin 0.3 (0.2-1) mg/dl AST 79 H (15-37) U/L ALT 72 (12-78) U/L Alkaline Phosphatase 99 (45-117) U/L Albumin 3.7 (3.4-5.0) gm/dl Diagnostic Findings HEAD CT IMPRESSION: 1. Disconjugate ocular gaze. Otherwise unremarkable noncontrast head CT. Code Status & VTE Plan Code Status Patient is a full code as per my discussion with her. VTE Prophylaxis Plan VTE Prophylaxis will be ordered: Yes (1) Heroin overdose Encounter type: initial encounter Injury intent: accidental or unintentional Qualified Code(s): T40.1X1A - Poisoning by heroin, accidental (unintentional), initial encounter
[2020-01-03 20:17] LABS: Appearance Urine Clear (Clear); Bacteria Urine Automated Negative (Negative); Bilirubin Urine Negative (Negative); Blood Urine Negative (Negative); Color Urine Dark Yellow; Epithelial Cell Urine Auto >30 /lpf (0-5); Glucose Urine UA 1+ (Negative); Ketones Urine 1+ (Negative); Leukocyte Esterase Urine Negative (Negative); Nitrite Urine Negative (Negative); Protein Urine 2+ (Negative); RBC Urine Automated 0-4 /hpf (0-4); Specific Gravity Urine 1.027 (1.000-1.030); Urobilinogen Urine Negative (Negative)
[2020-01-03 20:37] LABS: Amphetamines+Metham, Urine Pos (Neg); Barbiturates, Urine Neg (Neg); Benzodiazepine, Urine Neg (Neg); Cocaine, Urine Neg (Neg); MDMA (Ecstacy), Urine Pos (Neg); Methadone, Urine Neg (Neg); Opiate, Urine Pos (Neg); Phencyclidine, Urine Neg (Neg)
[2020-01-04] MEDS: SODIUM CHLORIDE 0.9% 1000ML 1,000 ML IV SCH (02:31)
[2020-01-04 07:17] LABS: Hematocrit (blood only) 39.8 % (37-47); Hemoglobin 12.3 g/dL (12.0-16.0); Mean Corpuscular Hemoglobin 30.1 pg (25-34); Mean Corpuscular Hgb Conc 30.9 g/dL (32-36); Mean Corpuscular Volume 97.3 fL (80-100); Mean Platelet Volume 9.5 fL (7.4-10.4); Platelet Count 388 K/uL (130-400); RDW Coefficient of Variation 13.1 % (11.5-14.5); RDW Standard Deviation 46.2 fL (36.4-46.3); Red Blood Count 4.09 M/uL (4.2-5.4); White Blood Count 11.57 K/uL (4.8-10.8)
[2020-01-04 07:45] LABS: BUN Creatinine Ratio 26.9 (10-20); Calcium 8.6 mg/dl (8.5-10.1); Est GFR (African American) 133.1; Est GFR (Non-African American) 114.8; Potassium 3.8 mmol/L (3.5-5.1)
[2020-01-04] MEDS ORDERED: LORazepam 0.5 MG/1 ML VIAL IV PRN (08:10)
[2020-01-04] MEDS ORDERED: PROMETHAZINE HCL 12.5 MG in SODIUM CHLORIDE 0.9% 50 ML IV PRN (08:10)
[2020-01-04] MEDS ORDERED: DEXTROSE 50% 50 ML SYRINGE IV STA (08:11)
[2020-01-04] MEDS ORDERED: DEXTROSE 50% 50 ML SYRINGE IV ONE (08:13)
[2020-01-04] MEDS ORDERED: LORazepam 2 MG/4 ML VIAL ONE (08:15)
[2020-01-04] MEDS ORDERED: DICYCLOMINE HCL 10 MG CAP PO PRN (08:24)
[2020-01-04] MEDS: D5NSS + 20MEQ KCL 20 MEQ/1,000 ML BAG IV SCH ×3 (09:25→18:29)
[2020-01-04] MEDS ORDERED: cloNIDine HCL 0.1 MG TAB PO PRN (09:44)
--- NOTE | 2020-01-04 11:21 | Psychiatric Consultation ---
Date of Consultation January 04, 2020 Impression / Recommendations Impression Dr. Ana Laura Ramsey was directly involved in review and discussion of the patient's case and participated in medical decision making regarding treatment recommendations. RECOMMENDATIONS: 01/03 - Psychiatric consultation requested by hospitalist service to evaluate patient s/p what appears to be an accidental heroin overdose. Pt did deny to this provider that the overdose was taken with intent to harm herself, and denied that it was a suicide attempt. Collateral obtained from a close friend who denied safety concerns and also believes the overdose was not a suicide attempt. Friend confirmed that the patient has housing. - Pt expressed willingness to meet with a psychiatric prescriber on an outpatient basis. Friend also reported that the patient's condition seemed to improved when she was prescribed psychiatric medications. Current concern is that patient has been abusing mood-altering substances and evaluation of her mood while still abusing these substances is not likely to be accurate. Would suggest substance abuse counseling (ideally inpatient rehab) initially. Pt does admit to a history of bipolar disorder diagnosis, but the accuracy of this diagnosis is uncertain if patient is continuing to abuse mood-altering substances. - Will fax psychiatric consultation to patient's PCP to allow for coordination of care. Pt can be referred for psychiatric treatment though the [facility] system, ideally once she is able to demonstrate commitment to abstaining from substance abuse. Pt was offered referrals for inpatient D&A rehab, but refused. We will provide patient with other options for outpatient supports as desired. Please reach out to our service with any additional questions or updates. Psych History Identifying Data 39-year-old female admitted medically after presenting to the ED s/p heroin overdose. It was reported that friends had found the patient unresponsive, without a pulse and was not breathing. Friends performed CPR and patient did receive 2 doses of Narcan. Psychiatric consultation was requested to evaluate patient s/p overdose. Chief Complaint "I'm tired. I don't really know, I haven't been awake enough to really remember anything." History of Present Illness Melissa Dye is a 39-year-old female admitted medically on 01/03/2020 after presenting to the ED via EMS s/p heroin overdose. Preliminary information gathered from H&P and admission records. It was reported that patient had overdosed on heroin, and was found by friends to be unresponsive with no breathing or pulse. Friends had performed CPR and patient received 2 doses of Narcan. She was admitted medically and has reportedly been stable otherwise. Pt had admitted to history of heroin and methamphetamine use in the past, but had reported she has been "clean for the past few months." There was mention of shahzad's "sister" passing recently. Toxicology screen was positive for opiates, methamphetamine, MDMA, and marijuana. Upon initial attempt at evaluation, the patient is able to be aroused with verbal stimuli, but had difficulty maintaining conversation due to level of sedation. She did inform this provider that she is feeling "out of it" presently, and reported a few physical complaints of dizziness, fatigue, and GI upset. Pt did report awareness that she is in the hospital and that she had overdosed on heroin. Pt is stating that she was using the heroin alone. Pt states she has not yet been alert enough to process the events leading to and following her overdose, but she does clearly state that it was not a suicide attempt. This provider continued attempts to gather additional information regarding any mental health history, but patient would fall asleep before answering questions. Pt was agreeable to completing the interview this afternoon. Pt somewhat more alert when this provider attempted a second evaluation. The patient again was arousable with verbal stimuli. She admitted again that she did not overdose with the intent to end her life. She does report presumed diagnoses of anxiety and bipolar disorder, but could not give clear or consistent history regarding when these diagnoses were made. Pt believes she had been prescribed valproic acid in the past and thought it was helpful but "I let the prescription run out a few years ago." Although patient is reporting willingness to meet with a psychiatric prescriber on an outpatient basis, she reports that her mood and anxiety are actually "better than they have been." She denies any acute mood, anxiety, or safety concerns at this time. The patient does acknowledge substance abuse, stating she began using methamphetamine "a few weeks ago" after the of her sister. Pt continues to fall asleep intermittently during our conversation (with potential some of this may be volitional avoidance of questions), and did not answer questions related to her sister's passing. Pt is unwilling to consider inpatient D&A rehabilitation or other substance abuse treatment at this time. Motivational interviewing was attempted, and patient does not seem to be committed to addressing this behavior. Pt was agreeable with signing a release and allowing a conversation with her friend, Lianna. Pt denied other needs from our service at this time. Past Psychiatric History Current Psychiatric Diagnosis: polysubstance abuse (reports history of anxiety/bipolar diagnoses) Outpatient Services: None Previous Psych Admissions: 2018 - involuntary psychiatric treatment due to agitated behavior and verbalized statements to kill herself (positive tox screen on presentation). Past Medication Trials: Pt believes she had been prescribed Depakote in the past Allergies Allergy/AdvReac Type Severity Reaction Status Date / Time No Known Allergies Allergy Mild Unverified 01/03/20 16:16 Home Medications Home Medications Medication Instructions Recorded Confirmed Type gabapentin 800 mg PO TID 01/03/20 01/03/20 History Family History Pt had reported her mother has "manic depression and schizophrenia" Substance Abuse History Pt has a documented history of significant polysubstance abuse. Pt admitted to using heroin, methamphetamine, marijuana, and cocaine. Pt reportedly smokes 1 pack of cigarettes daily. Personal History Living Arrangements: Apartment (with "friends") Childhood: It is reported that the patient [facility] throughout her childhood. History of Legal Problems: Pt does have a history of several incarcerations for drug use, theft, disorderly conduct, and DUIs. Patient History Medical History Anxiety Genital warts Polysubstance abuse Suicidal ideation Family History Mother Kidney disease Social History Smoking Status: Current every day smoker Cigarettes Per Day: 20; Tobacco Cessation Education Requested by Patient: No Hx Alcohol Use: No Hx Substance Use: Yes Last Used Substance: Hours (ago) Substance Use Type Other:: Here with heroin/meth overdose Preferred Language: Lao Communication Ability: Effective Fitness Sales Consultant Required: No Current Living Situation: Other Current Living Situation Comment: Living with friends Other Information That Helps Us Care for You: No Feels Safe at Home: Yes Safety Concerns: Feels Safe At This Time Assistive Devices: Oxygen - Continuous Physical Exam Psychiatric: Orientation: alert, oriented to person, oriented to place and + guarded (unclear if due to true sedation, or desire to avoid answering questions); + not oriented to time (some confusion about specific date) Pt does appear sedated, but there were also events in which the patient did not answer questions - occasionally seemed to "fall asleep" volitionally based on topic of question Apperance: appropriately dressed and + disheveled Unkempt, thin-appearing female. Pt is poorly groomed. Face is covered with numerous diffuse excoriations/scabs. Eye Contact: + poor eye contact (eyes remained closed for most of conversation) Motor Behavior: no abnormal motor movements (observed while laying in bed) Speech: + abnormal rate/rhythm/volume of speech (very soft volume, muffled speech at times due to falling asleep) Affect: + blunted affect (appearing sedated/subdued) Mood: no depressed mood ("I've actually been better lately") Thought Process: goal directed thought process and + concrete thought process Thought Content: not paranoid, no hopelessness and no worthlessness Suicidal Thoughts: denies suicidal thoughts, denies suicidal plan and denies suicidal intent Homicidal Thoughts: denies homicidal thoughts Cognition: language grossly intact; + recent memory not intact, + remote memory not intact and + attention not intact (impaired due to level of sedation) Pt unable to provide reliable timeline of events Insight: + poor insight (most likely consistent with substance abuse history ) Judgement: + poor judgement Vital Signs (Past 24 Hours): Last Vital Signs Temp 36.5 C 01/04/20 08:24 Pulse 74 01/04/20 08:24 Resp 18 01/04/20 08:24 BP 104/67 01/04/20 08:24 Pulse Ox 93 01/04/20 08:24 Review of Systems Constitutional: reports sedation and feeling "out of it" Cardiovascular: denied Respiratory: denied Gastrointestinal: reports nausea Neurological: denied Psychiatric: denies symptoms other than stated above Total of at least 10 systems reviewed, pertinent positives as above and in HPI. Results & Data (PSY) Medications Administered Potassium Chloride/Dextrose/Sod Cl (D5nss + 20meq Kcl) 20 meq in 1,000 mls @ 125 mls/hr IV .Q8H ISHAN Stop: 02/03/20 08:29 Last Admin: 01/04/20 09:25 Dose: 125 mls/hr Documented by: [id number] Coding Level of Care Code 17230 [facility] Lvl 2
--- NOTE | 2020-01-04 19:35 | Hospitalist Progress Note ---
Date of Service January 04, 2020 Assessment & Plan (1) Heroin overdose: Per admitting service notes: -Patient presenting to ED after witnessed heroin overdose. Reportedly received CPR by her friends however when EMS arrived, patient did have a pulse with shallow respirations. Received nasal Narcan and began to arouse. -Required 2 additional doses of Narcan in the ED, 0.4 mg and 2 mg -Respiratory status stable, awake and alert when awakened -Had nausea this morning No overt signs of heroin withdrawal on my exam, CO WS score 1 Patient admits to taking heroin yesterday but reports that this is her first time to try heroin Admits to taking heroin and marijuana Denies other illicit drugs Denies alcohol intake -We will add clonidine as needed for CIWA score more than 8 Phenergan, Ativan, Bentyl as needed ordered for nausea, anxiety, abdominal cramping Patient states she will think about possibly going to inpatient drug rehab -Continue to monitor closely Psychiatry service consulted digital strategy manager on board (2) Hypercarbia: Chronic For admitting service notes: -Initial VBG showed pH 7.29, PCO2 61, repeat ABG showed pH 7.34, PCO2 50 -Likely has some chronic CO2 retention from chronic tobacco abuse -Respiratory status stable (3) DVT prophylaxis: -SCDs Admission and Anticipated Discharge Date Admission Date: January 03, 2020 Subjective Follow-up for heroin overdose Seen sleeping, comfortable, easily awakened States she feels very tired Had nausea this morning, improved with Phenergan Denies abdominal pain, headache, anxiety, tremors No chest pain, shortness of breath, palpitations, dizziness No other symptoms Review of Systems Review of Systems: All systems reviewed & are unremarkable except as noted in Subjective Physical Exam Physical Exam: General- oriented x 3, not in distress, speaks in sentences with no effort or accessory muscle use Head- atraumatic Eyes- PERRL, EOMI, anicteric ENT- oropharynx clear Neck- supple, no JVD, no adenopathy, no thyromegaly; carotids +2/2, no bruits appreciated Lungs- clear to auscultation bilaterally, no rales/wheezes Heart- normal rate, regular rhythm; no murmur, no gallop, no rub appreciated Abdomen- normal bowel sounds, nondistended, soft, nontender, no masses or hepatosplenomegaly Extremities- no pretibial edema, no calf tenderness; peripheral pulses intact No tremors Neuro- alert, oriented x 3; CN 2-12 grossly intact; motor 5/5 bilaterally;sensation 100% on all extremities; no other gross focal neurologic deficits Skin- warm & dry Results & Data Results & Data ([facility]) Vital Signs (Past 12 Hours) Vital Signs Temp Pulse Pulse Resp BP BP Pulse Ox 01/04/20 17:40 76 01/04/20 15:49 37.1 C 88 12 119/73 97 01/04/20 12:46 37.0 C 69 16 115/62 96 01/04/20 08:24 36.5 C 74 18 104/67 93 Laboratory Results Laboratory Results - last 24 hr 01/03/20 01/03/20 01/03/20 19:55 19:55 19:55 WBC RBC Hgb Hct MCV MCH MCHC RDW Std Deviation RDW Coeff of Yinka Plt Count MPV Sodium Potassium Chloride Carbon Dioxide Anion Gap BUN Creatinine Est Cr Clr Drug Dosing Est GFR ( Amer) Est GFR (Non-Af Amer) BUN/Creatinine Ratio Glucose POC Glucose Calcium Urine Color Dark Yellow Urine Appearance Clear Urine pH 5.0 Ur Specific [place] 1.027 Urine Protein 2+ H Urine Glucose (UA) 1+ H Urine Ketones 1+ H Urine Blood Negative Urine Nitrite Negative Urine Bilirubin Negative Urine Urobilinogen Negative Ur Leukocyte Esterase Negative Urine WBC (Auto) 10-30 H Urine RBC (Auto) 0-4 U Hyaline Cast (Auto) 10-30 H U Epithel Cells (Auto) >30 H Urine Bacteria (Auto) Negative Ur Renal Epithelial Cell Not Reportable Urine Opiates Screen Pos H U Codeine Confrm GC/MS Pending Ur Morphine (GC/MS) Pending Ur Hydrocodone (GC/MS) Pending Ur Norhydrocodone Pending Ur Noroxycodone Pending Urine Oxycodone (GC/MS) Pending U Oxymorphone GC/MS Pending Ur Methadone, Qual Neg Ur Hydromorphone (GC/MS) Pending Urine Barbiturates Neg Ur Phencyclidine (PCP) Neg U Amphetamines Confirm Pending U Amphetamin/Meth Scrn Pos H U Methamphetamin Confrm Pending Urine MDEA Pending MDMA (Ecstasy) Screen Pos H MDMA Pending Urine MDMA Pending U Benzodiazepines Scrn Neg Ur Cocaine Metabolite Neg U Marijuana (THC) Screen Pos H U Marijuana THC Carboxy Pending Drug Screen Comment Pending 01/04/20 01/04/20 01/04/20 06:42 06:42 08:18 WBC 11.57 H RBC 4.09 L Hgb 12.3 Hct 39.8 MCV 97.3 MCH 30.1 MCHC 30.9 L RDW Std Deviation 46.2 RDW Coeff of Yinka 13.1 Plt Count 388 MPV 9.5 Sodium 140 Potassium 3.8 Chloride 111 H Carbon Dioxide 21 Anion Gap 9.0 BUN 16 Creatinine 0.60 Est Cr Clr Drug Dosing 98.0 Est GFR ( Amer) 133.1 Est GFR (Non-Af Amer) 114.8 BUN/Creatinine Ratio 26.9 H Glucose 59 L POC Glucose 60 L* Calcium 8.6 Urine Color Urine Appearance Urine pH Ur Specific [place] Urine Protein Urine Glucose (UA) Urine Ketones Urine Blood Urine Nitrite Urine Bilirubin Urine Urobilinogen Ur Leukocyte Esterase Urine WBC (Auto) Urine RBC (Auto) U Hyaline Cast (Auto) U Epithel Cells (Auto) Urine Bacteria (Auto) Ur Renal Epithelial Cell Urine Opiates Screen U Codeine Confrm GC/MS Ur Morphine (GC/MS) Ur Hydrocodone (GC/MS) Ur Norhydrocodone Ur Noroxycodone Urine Oxycodone (GC/MS) U Oxymorphone GC/MS Ur Methadone, Qual Ur Hydromorphone (GC/MS) Urine Barbiturates Ur Phencyclidine (PCP) U Amphetamines Confirm U Amphetamin/Meth Scrn U Methamphetamin Confrm Urine MDEA MDMA (Ecstasy) Screen MDMA Urine MDMA U Benzodiazepines Scrn Ur Cocaine Metabolite U Marijuana (THC) Screen U Marijuana THC Carboxy Drug Screen Comment 01/04/20 01/04/20 08:47 11:38 WBC RBC Hgb Hct MCV MCH MCHC RDW Std Deviation RDW Coeff of Yinka Plt Count MPV Sodium Potassium Chloride Carbon Dioxide Anion Gap BUN Creatinine Est Cr Clr Drug Dosing Est GFR ( Amer) Est GFR (Non-Af Amer) BUN/Creatinine Ratio Glucose POC Glucose 186 H 211 H Calcium Urine Color Urine Appearance Urine pH Ur Specific [place] Urine Protein Urine Glucose (UA) Urine Ketones Urine Blood Urine Nitrite Urine Bilirubin Urine Urobilinogen Ur Leukocyte Esterase Urine WBC (Auto) Urine RBC (Auto) U Hyaline Cast (Auto) U Epithel Cells (Auto) Urine Bacteria (Auto) Ur Renal Epithelial Cell Urine Opiates Screen U Codeine Confrm GC/MS Ur Morphine (GC/MS) Ur Hydrocodone (GC/MS) Ur Norhydrocodone Ur Noroxycodone Urine Oxycodone (GC/MS) U Oxymorphone GC/MS Ur Methadone, Qual Ur Hydromorphone (GC/MS) Urine Barbiturates Ur Phencyclidine (PCP) U Amphetamines Confirm U Amphetamin/Meth Scrn U Methamphetamin Confrm Urine MDEA MDMA (Ecstasy) Screen MDMA Urine MDMA U Benzodiazepines Scrn Ur Cocaine Metabolite U Marijuana (THC) Screen U Marijuana THC Carboxy Drug Screen Comment (1) Heroin overdose Encounter type: initial encounter Injury intent: accidental or unintentional Qualified Code(s): T40.1X1A - Poisoning by heroin, accidental (unintentional), initial encounter
--- NOTE | 2020-01-05 11:29 | Hospitalist Progress Note ---
Date of Service January 05, 2020 Assessment & Plan (1) Heroin overdose: Per admitting service notes: -Patient presenting to ED after witnessed heroin overdose. Reportedly received CPR by her friends however when EMS arrived, patient did have a pulse with shallow respirations. Received nasal Narcan and began to arouse. -Required 2 additional doses of Narcan in the ED, 0.4 mg and 2 mg - Patient admits to taking heroin but reports that this is her first time to try heroin Admits to taking heroin and marijuana Denies other illicit drugs Denies alcohol intake - given supportive care, PRN Ativan, anti-emetics, Clonidine -Respiratory status stable, alert, oriented x 3 No overt signs of heroin withdrawal while admitted - Psychiatry service consulted Patient declined inpatient Drug Rehab ff up with PCP in 1 week, continue discussion regarding Drug Rehab with PCP (2) Hypercarbia: Chronic For admitting service notes: -Initial VBG showed pH 7.29, PCO2 61, repeat ABG showed pH 7.34, PCO2 50 -Likely has some chronic CO2 retention from chronic tobacco abuse -Respiratory status stable (3) DVT prophylaxis: -SCDs plan of care discussed with patient in detail and at length all questions answered she is understanding, agreeable, comfortable with plan of care Admission and Anticipated Discharge Date Admission Date: January 03, 2020 Subjective ff up for heroine overdose seen resting in bed, comfortable states she feels much better overall denies dyspnea, chest pain, dizziness, headache no other symptoms states she is ready and would like to be discharged Review of Systems Review of Systems: All systems reviewed & are unremarkable except as noted in Subjective Physical Exam Physical Exam: General- oriented x 3, not in distress, speaks in sentences with no effort or accessory muscle use Eyes- anicteric Neck- no JVD Lungs- clear breath sounds bilaterally, no crackles, no wheezing Heart- normal rate, regular rhythm; no murmurs Abdomen- normal bowel sounds, nondistended, soft, nontender Extremities- no pretibial edema, no calf tenderness Neuro- alert, oriented x 3; no gross focal neurologic deficits Skin- warm & dry Results & Data Results & Data ([facility]) Vital Signs (Past 12 Hours) Vital Signs Temp Pulse Pulse Resp BP Pulse Ox 01/05/20 07:50 36.7 C 75 16 111/65 01/05/20 02:48 36.7 C 71 20 101/62 98 01/05/20 00:05 36.8 C 80 16 121/70 97 01/05/20 00:00 76 (1) Heroin overdose Encounter type: initial encounter Injury intent: accidental or unintentional Qualified Code(s): T40.1X1A - Poisoning by heroin, accidental (unintentional), initial encounter
--- NOTE | 2020-01-07 22:01 | Discharge Summary ---
Date of Service January 07, 2020 Admission HPI Per Admitting Provider 39 year old female with PMH polysubstance abuse and other problems listed below who presents to the ED for evaluation of heroin overdose. Patient has a longstanding history of polysubstance abuse. Patient reports she has history of using methamphetamine and heroin in the past. Reports that she typically smokes methamphetamines however had been clean for the past few months. Reports her sister recently and she was upset and decided to use heroin yesterday. Reports she has not used heroin in several years. After using heroin yesterday, patient's friends were concerned that she was unresponsive and not breathing. Reportedly, CPR was performed. When EMS arrived, patient was found to have a pulse and shallow respirations. She received nasal Narcan and began to arouse. In the ED, patient received 2 doses of Narcan, 0.4 mg and 2 mg. She currently is sleeping however is easily arousable. Vitals are stable. Patient reports she otherwise has been feeling well recently. No other recent illnesses, fevers, chills. Denies chest pain, shortness of breath, cough. No abdominal pain, nausea, or vomiting. Labs were remarkable for initial VBG showing pH 7.29, PCO2 61. Repeat ABG showed pH 7.34, PCO2 50. In addition to the Narcan, patient also received IVF and prochlorperazine in the ED. Admission Exam Per Admitting Provider Constitutional: + thin Chronically ill-appearing consistent with chronic drug abuse Eyes: + pinpoint pupils; no conjunctival abnormality and no scleral abnormality ENMT: Ears: no external ear abnormality Nose: no external nose abnormality Mouth: + poor dentition Respiratory: normal respiratory effort, lungs clear to auscultation Cardiovascular: Rate/Rhythm: regular rate and regular rhythm Vessels: normal peripheral pulses Extremities: no edema Gastrointestinal (Abdomen): normal bowel sounds, soft, nontender, no hepatosplenomegaly Musculoskeletal: no cyanosis or clubbing, extremities motor strength 5/5 Skin: no rashes, warm and dry Numerous scattered abrasions/scabs over the face, track cerna noted over bilateral arms and legs Neurologic: Speech / Cognition: normal speech Cranial Nerves: normal accommodation, EOM intact bilaterally and normal facial strength; + no PERRL (Pinpoint pupils) Psychiatric: A+Ox3, euthymic affect Principal Diagnosis HEROIN OVERDOSE Discharge Exam General- oriented x 3, not in distress, speaks in sentences with no effort or accessory muscle use Eyes- anicteric Neck- no JVD Lungs- clear breath sounds bilaterally, no crackles, no wheezing Heart- normal rate, regular rhythm; no murmurs Abdomen- normal bowel sounds, nondistended, soft, nontender Extremities- no pretibial edema, no calf tenderness Neuro- alert, oriented x 3; no gross focal neurologic deficits Skin- warm & dry Discharge Data Allergies Allergy/AdvReac Type Severity Reaction Status Date / Time No Known Allergies Allergy Mild Unverified 01/03/20 16:16 Consultations 01/03/20 13:47 ED Decision to Admit Stat 01/03/20 17:05 Consult Case Management - Discharge Planning Routine Consult Psychiatry Routine Ordered Studies 01/03/20 12:52 CT head/brain wo con Stat No intra or extra-axial mass lesions are visualized. There is no CT evidence of acute cortical infarction. There is no evidence of midline shift. There is no acute hemorrhage. No calvarial fractures are visualized. There is disconjugate ocular gaze There is no evidence of pathologic ventricular dilatation. There is no evidence of acute sinusitis IMPRESSION: 1. Disconjugate ocular gaze. Otherwise unremarkable noncontrast head CT. Hospital Course (1) Heroin overdose: Per admitting service notes: -Patient presenting to ED after witnessed heroin overdose. Reportedly received CPR by her friends however when EMS arrived, patient did have a pulse with shallow respirations. Received nasal Narcan and began to arouse. -Required 2 additional doses of Narcan in the ED, 0.4 mg and 2 mg - Patient admits to taking heroin but reports that this is her first time to try heroin Admits to taking heroin and marijuana Denies other illicit drugs Denies alcohol intake - given supportive care, PRN Ativan, anti-emetics, Clonidine -Respiratory status stable, alert, oriented x 3 No overt signs of heroin withdrawal while admitted - Psychiatry service consulted Patient declined inpatient Drug Rehab ff up with PCP in 1 week, continue discussion regarding Drug Rehab with PCP (2) Hypercarbia: Chronic For admitting service notes: -Initial VBG showed pH 7.29, PCO2 61, repeat ABG showed pH 7.34, PCO2 50 -Likely has some chronic CO2 retention from chronic tobacco abuse -Respiratory status stable (3) DVT prophylaxis: -SCDs plan of care discussed with patient in detail and at length all questions answered she is understanding, agreeable, comfortable with plan of care Total Time Total Time Spent Total Time Spent (In Minutes): 40 MINUTES Discharge Plan Discharge Items Patient Disposition: Home - Self-Care Reason For Visit: HEROIN OVERDOSE Discharge Diagnosis: HEROIN OVERDOSE Activity: Resume your previous activity Activity Comment: GRADUALLY TOLERATED Driving/Machine Use: NO DRIVING UNTIL RE-EVALUATED AND ALLOWED BY PRIMARY CARE PHYSICIAN Non-emergency contact: Primary Care Provider Call non-emergency contact if: you have any medication questions, your symptoms worsen, your pain is not controlled, your pain is worsening, your pain is unusual for you, your pain is concerning for you and you have a fever Follow-up/Referrals: Chayito Del Toro, [Primary Care Provider] - 01/08/20 2:20 pm Diet: Regular Addtl Attending Provider Instructions: NO ILLICIT DRUGS, ALCOHOL, SMOKING. PLEASE DRINK PLENTY OF FLUIDS AND GET PLENTY OF REST. CALL PRIMARY CARE PHYSICIAN OR RETURN TO THE ER IMMEDIATELY IF WITH FEVER/CHILLS, NAUSEA/VOMITING, ABDOMINAL PAIN, TREMORS, WORSENING ANXIETY, DEPRESSION. PLEASE FOLLOW UP WITH DR. DEL TORO NEXT WEEK OUTLINED. PSYCHIATRY FOLLOW UP AND DRUG REHAB PROGRAM STRONGLY ENCOURAGED. PLEASE CONTINUE DISCUSSION WITH DR. DEL TORO. Pending Studies at Discharge: No Stand-Alone Forms: [facility] volante, Smoking Cessation, Suicide Prevention Resources Medications and DC Order Prescriptions: Discontinued gabapentin 800 mg tablet 800 mg PO TID RF: 0 Discharge Orders: Discharge Order (Routine); Ordered 01/05/20 Ordered By: Cortes Morales Admission Data Admit Date/Time: 01/03/20 15:33 Attending Provider: Cortes Morales Admit Provider: Gem Pastor Primary Care Provider: Chayito Del Toro Other Providers: Gem Pastor ; Jesise Brooks Other Interventions: Discharge Summary Assessment (RN) Last Done: 01/05/20 11:46
[2020-01-08 10:32] LABS: Amphetamine Urine, Confirm >15000 ng/mL (<250); Codeine Urine NEGATIVE ng/mL (<50); Hydrocodone Urine NEGATIVE ng/mL (<50); Hydromor Urine NEGATIVE ng/mL (<50); MDA negative; MDEA negative; MDMA (Ecstasy) Urine, Confirm negative; Marijuana Quant, GCMS Urine 336 ng/mL (<5); Methamphetamine, Ur Confirm >15000 ng/mL (<250); Morphine Urine 1370 ng/mL (<50); Norhydrocodone Conf Ur NEGATIVE ng/mL (<50); Noroxycodone Urine NEGATIVE ng/mL (<50); Oxycodone Urine NEGATIVE ng/mL (<50); Oxymorph Urine NEGATIVE ng/mL (<50)
== END 2020-01-05 12:22 | disposition home or self-care (01) | DRG 918 ==
LOC: ED 06:31 → SUATTDRO 15:33 → 2E 15:33 → 2S 01-04 22:59